=== PATIENT | male | born 1950 | race Caucasian/White ===

== ENCOUNTER → 2018-06-25 | Day surgery (SDC) | payer OTHER ==
[~2018-06-25] MED LIST: FLUMAZENIL 0.5 MG/5 ML MDV IVP PRN; HYDROCODONE/APAP 5/325 TAB PO PRN; IBUPROFEN 200 MG TAB PO ONE; LIDO/EPI 1% **for epidural** 30 ML SDV ONE; MIDAZOLAM 2 MG/2 ML VIAL IVP PRN; NALOXONE HCL 0.4 MG/ML INJ IVP PRN; NS 1,000 ML IV ONE; NS 1,000 ML IV SCH; ONDANSETRON 4 MG/2 ML VIAL IVP ONE; ONDANSETRON 4 MG/2 ML VIAL IVP PRN; ONDANSETRON DISINTEGRATING 4 MG TAB PO PRN; SODIUM TETRADECYL SULFATE 3% 2 ML VIAL IV ONE; ceFAZolin 2 GM/DEXTROSE 100 ML IV ONE; fentaNYL 100 MCG/2 ML INJ IVP PRN
--- NOTE | 2018-06-25 11:34 | PDPROPOC ---
Sedation Plan of Care Sedation Plan of Care: vital signs stable, mental status noted, patient educated of risks, benefits, alternatives, patient can tolerate sedation ASA Classification: ASA 2 Planned drugs: fentanyl, midazolam Mallampati Score: Class 2 Mallampati Reference Image: Patient passed 3-3-2 rule?: Yes
--- NOTE | 2018-06-25 12:01 | PDGENHP ---
History & Physical Chief Complaint: EARLY DERMATITIS RLE History of Present Illness: RT SUPERFICIAL VENOUS INSUFFICIENCY Pertinent Past, Social, Family History: NON SMOKER Relevant Physical Exam: LARGE ROPEY RLE VARICOSE VEINS MAPPED OUT Cardiorespiratory Assessment: RRR, CTA
--- NOTE | 2018-06-25 12:02 | PDRADPN ---
Radiology Procedure Note Date of Procedure: 06/25/18 Radiologist: Ailyn Roman Anesthesia: IV Sedation Pre-op Diagnosis: RT VARICOSE VEINS Post-op Diagnosis: SAME Indication: EARLY DERMATITIS Procedure: LASER ABLATION, SCLEROTHERAPY, PHLEBECTOMY Inf/Abcess present in the surg proc area at time of surgery?: No
[2018-06-25 12:35] VITALS: BP 119/69
== END | disposition home or self-care (01) ==
LOC: FIMAGING 07:57
PROVIDERS: ATTEND Radiology Diagnostic Radiology
DX: I83.11 Varicose veins of right lower extremity with inflammation (principal); I83.811 Varicose veins of right lower extremity with pain; I83.213 Varicose veins of right lower extremity with both ulcer of ankle and inflammation; L03.115 Cellulitis of right lower limb; L97.319 Non-pressure chronic ulcer of right ankle with unspecified severity
CPT/HCPCS: J0690; J2250; J2310; J3010

== ENCOUNTER → 2018-07-14 | Outpatient (CLI) | payer OTHER | LOC: FIMAGING 16:28 | PROVIDERS: ATTEND Radiology Diagnostic Radiology | DX: M79.89 Other specified soft tissue disorders (principal); Z98.890 Other specified postprocedural states ==

== ENCOUNTER → 2018-08-12 | Day surgery (SDC) | payer OTHER ==
[~2018-08-12] MED LIST changes: -FLUMAZENIL 0.5 MG/5 ML MDV IVP PRN; -HYDROCODONE/APAP 5/325 TAB PO PRN; -IBUPROFEN 200 MG TAB PO ONE; -MIDAZOLAM 2 MG/2 ML VIAL IVP PRN; -NALOXONE HCL 0.4 MG/ML INJ IVP PRN; -NS 1,000 ML IV ONE; -NS 1,000 ML IV SCH; -ONDANSETRON 4 MG/2 ML VIAL IVP ONE; -ONDANSETRON 4 MG/2 ML VIAL IVP PRN; -ONDANSETRON DISINTEGRATING 4 MG TAB PO PRN; -ceFAZolin 2 GM/DEXTROSE 100 ML IV ONE; -fentaNYL 100 MCG/2 ML INJ IVP PRN
== END | disposition home or self-care (01) ==
LOC: FIMAGING 08:31
PROVIDERS: ATTEND Radiology Diagnostic Radiology
PROC: 065Y3ZZ Destruction of Lower Vein, Percutaneous Approach (ICD-10-PCS; principal; 2018-08-12)
PROC: 3E033TZ Introduction of Destructive Agent into Peripheral Vein, Percutaneous Approach (ICD-10-PCS; principal; 2018-08-12)
DX: I83.811 Varicose veins of right lower extremity with pain (principal)

== ENCOUNTER → 2018-08-26 | Outpatient (CLI) | payer OTHER | LOC: FIMAGING 15:51 ==

== ENCOUNTER → 2018-09-01 | Outpatient (CLI) | payer OTHER | LOC: FIMAGING 15:55 ==